=== PATIENT | male | born 1955 | race Asian ===

== ENCOUNTER 2024-09-27 08:18 | Inpatient (IN) | payer BC, MEDICARE ==
[~2024-09-27] VITALS: Ht 180.3 cm; Wt 113.4 kg
[2024-09-27] MEDS: SODIUM CHLORIDE 0.9% 1,000 ML IV ONE (08:45)
[2024-09-27 09:09] LABS: CHLORIDE 113 mEq/L (98-107); POTASSIUM 4.7 mEq/L (3.5-5.1); SODIUM 141 mEq/L (136-145)
[2024-09-27 09:10] LABS: CARBON DIOXIDE 19 mEq/L (21-32)
[2024-09-27 09:11] LABS: CALCIUM 8.5 mg/dL (8.7-10.4)
[2024-09-27 09:13] LABS: BASOPHILS % 0.2 % (0.0-2.0); DIFFERENTIAL COMMENT 0; EOSINOPHILS % 4.3 % (0.0-5.0); HEMATOCRIT. 28.3 % (42.0-52.0); HEMOGLOBIN. 9.1 g/dL (14.0-18.0); LYMPHOCYTES % 18.1 % (20.0-50.0); MEAN CORPUSCULAR HEMOGLOBIN 33.1 pg (28.0-32.0); MEAN CORPUSCULAR HGB CONC 32.2 g/dL (31.0-37.0); MEAN CORPUSCULAR VOLUME 102.7 fL (80.0-94.0); MEAN PLATELET VOLUME 8.8 fl (7.4-10.4); MONOCYTES % 6.7 % (2.0-8.0); NEUTROPHILS % 70.7 % (40.0-76.0); PLATELET 142 x1000/uL (130-400); RED BLOOD CELL COUNT 2.75 mill/uL (4.7-6.1)
[2024-09-27 09:15] LABS: GLUCOSE 95 mg/dL (70-105); UREA NITROGEN BLOOD 42 mg/dL (9-23)
[2024-09-27 09:16] LABS: TROPONIN I HIGH SENSITIVITY 15 ng/L (3.0-53)
[2024-09-27] MEDS ORDERED: SERT-422 PO (14:52)
[2024-09-27] MEDS ORDERED: INSU100I13 SUBCUT (14:52)
[2024-09-27] MEDS ORDERED: CARV25TA47 PO (14:52)
[2024-09-27] MEDS ORDERED: [UNRECOGNIZED DRUG - CODE] (14:52)
[2024-09-27] MEDS ORDERED: INSU100I28 SUBCUT (14:52)
[2024-09-27 14:54] VITALS: BP 163/62; PULSE 71; RESP 18; TEMP 36.6; O2SAT 100
[2024-09-27] MEDS ORDERED: ATOR20TA PO (15:04)
[2024-09-27] MEDS ORDERED: ALLO300T2 PO (15:04)
[2024-09-27] MEDS ORDERED: LENA5CAP PO (15:04)
[2024-09-27] MEDS ORDERED: AMLO5TAB88 PO (15:04)
[2024-09-27 15:15] VITALS: BP 165/88; PULSE 81; RESP 18; TEMP 36.6
[2024-09-27] MEDS ORDERED: ONDANSETRON HCL 4MG/2ML INJ IV PRN (16:45)
[2024-09-27] MEDS ORDERED: IPRATROPIUM/ALBUTEROL 0.5-3(2.5)MG/3ML NEB NEB PRN (16:45)
[2024-09-27] MEDS ORDERED: ACETAMINOPHEN 650MG/20.3ML UDC GT PRN (16:45)
[2024-09-27 20:00] VITALS: BP 137/56; PULSE 68; RESP 19; TEMP 36.3; O2SAT 100
[2024-09-27] MEDS: ALLOPURINOL 100 MG TABLET PO SCH (21:00)
[2024-09-27] MEDS ORDERED: MEDICATION NOT ON FORMULARY EA (Carvedilol 1 TAB) PO SCH (21:00)
[2024-09-27] MEDS: ATORVASTATIN CALCIUM 20MG TABLET PO SCH (21:48)
[2024-09-27] MEDS: CARVEDILOL 12.5MG TABLET PO SCH (21:48)
[2024-09-27] MEDS: ENOXAPARIN 30MG/0.3ML SYR SUBCUT SCH (21:49)
[2024-09-27 22:07] LABS: CREATINE KINASE MB FRACTION 4.7 ng/mL (0.5-3.6)
[2024-09-27 23:54] VITALS: BP 129/51; PULSE 66; RESP 20; TEMP 36.3; O2SAT 98
[2024-09-28 04:00] VITALS: BP 115/60; PULSE 61; RESP 19; TEMP 36.3; O2SAT 100
[2024-09-28] MEDS: BLOOD SUGAR DIAGNOSTIC STRIP TEST SCH ×2 (06:41→11:55)
[2024-09-28 06:48] LABS: CREATINE KINASE MB FRACTION 3.6 ng/mL (0.5-3.6)
[2024-09-28 08:00] VITALS: BP 124/53; PULSE 65; RESP 20; TEMP 36.7; O2SAT 98
[2024-09-28] MEDS: SERTRALINE HCL 50MG TABLET PO SCH (09:10)
[2024-09-28] MEDS: AMLODIPINE 5MG TABLET PO SCH (09:10)
[2024-09-28] MEDS ORDERED: DEXTROSE 50% WATER 50ML SYRINGE IV PRN (11:30)
[2024-09-28] MEDS: INSULIN LISPRO 100 UNITS/ML SUBCUT SCH (12:30)
[2024-09-28 12:55] LABS: BASOPHILS % 0.1 % (0.0-2.0); DIFFERENTIAL COMMENT 0; HEMATOCRIT. 27.3 % (42.0-52.0); HEMOGLOBIN. 8.9 g/dL (14.0-18.0); LYMPHOCYTES % 21.9 % (20.0-50.0); MEAN CORPUSCULAR HEMOGLOBIN 33.1 pg (28.0-32.0); MEAN CORPUSCULAR HGB CONC 32.6 g/dL (31.0-37.0); MEAN CORPUSCULAR VOLUME 101.6 fL (80.0-94.0); MEAN PLATELET VOLUME 8.4 fl (7.4-10.4); MONOCYTES % 8.9 % (2.0-8.0); NEUTROPHILS % 64.1 % (40.0-76.0); PLATELET 111 x1000/uL (130-400); RED BLOOD CELL COUNT 2.68 mill/uL (4.7-6.1); RED CELL DISTRIBUTION WIDTH 17.6 % (11.6-14.6); WHITE BLOOD COUNT 4.4 x1000/uL (4.5-11.0)
[2024-09-28 13:04] LABS: POTASSIUM 4.9 mEq/L (3.5-5.1)
[2024-09-28 13:05] LABS: CALCIUM 8.6 mg/dL (8.7-10.4)
[2024-09-28 13:37] LABS: CREATININE 5.1 mg/dL (0.6-1.3)
[2024-09-28 16:00] VITALS: BP 119/58; PULSE 66; RESP 18; TEMP 36.2; O2SAT 100
[2024-09-28 16:35] VITALS: BP 119/58; PULSE 66; TEMP 97.1; O2SAT 100
== END 2024-09-28 17:45 | disposition home or self-care (01) | DRG 314 ==
LOC: ER 08:18 → 7WST 09:38 → EDBEDREQ 09:50
PROVIDERS: ADMIT Internal Medicine; ATTEND Internal Medicine
DX: I95.9 Hypotension, unspecified (principal); G93.41 Metabolic encephalopathy; C90.00 Multiple myeloma not having achieved remission; N18.4 Chronic kidney disease, stage 4 (severe); E86.1 Hypovolemia; E11.22 Type 2 diabetes mellitus with diabetic chronic kidney disease; I13.10 Hypertensive heart and chronic kidney disease without heart failure, with stage 1 through stage 4 chronic kidney disease, or unspecified chronic kidney disease; D63.8 Anemia in other chronic diseases classified elsewhere; G89.29 Other chronic pain; Z79.4 Long term (current) use of insulin; Z79.899 Other long term (current) drug therapy
CPT/HCPCS: 36415; 71045; 80048; 82550; 82553; 82962; 83036; 83880; 84484; 85025; 93005; 99285; A4606; J1650; J7030